=== PATIENT | male | born 1965 | race Caucasian/White ===

== ENCOUNTER → 2020-04-30 | Outpatient (CLI) | payer OTHER ==
[~2020-04-30] MED LIST: BACLOFEN10 MG PO; BAYER CHEWABLE81 MG PO; COQ-10100 MG PO; CYMBALTA60 MG PO; DOXAZOSIN MESYLA8 MG PO; HYDRALAZINE HCL25 MG PO; HYDROCODON-ACE1 EAC4 PO; NABUMETONE500 MG PO; PROTONIX40 MG PO; TIZANIDINE HCL4 M1 PO; TOPROL XL100 MG PO; VITAMIN D3100 MCG PO
== END ==
LOC: OPSV2 07:30
DX: Z01.812 Encounter for preprocedural laboratory examination (principal); Z20.822 Contact with and (suspected) exposure to COVID-19

== ENCOUNTER → 2020-05-07 | Day surgery (SDC) | payer OTHER | END | disposition home or self-care (01) | LOC: OR 06:13 | PROVIDERS: Surgery | PROC: 0KBR0ZX Excision of Left Upper Leg Muscle, Open Approach, Diagnostic (ICD-10-PCS; principal; 2020-05-07 07:30) | DX: M62.81 Muscle weakness (generalized) (principal); I10 Essential (primary) hypertension; E78.5 Hyperlipidemia, unspecified; J44.9 Chronic obstructive pulmonary disease, unspecified; G47.30 Sleep apnea, unspecified; K21.9 Gastro-esophageal reflux disease without esophagitis; M06.9 Rheumatoid arthritis, unspecified; Z20.822 Contact with and (suspected) exposure to COVID-19; Z79.82 Long term (current) use of aspirin; Z79.899 Other long term (current) drug therapy; Z87.891 Personal history of nicotine dependence; Z79.1 Long term (current) use of non-steroidal anti-inflammatories (NSAID) | CPT/HCPCS: J0690; J1100; J2001; J2250; J2405; J2704; J3010; J7120 ==

== ENCOUNTER → 2021-06-10 | Outpatient (CLI) | payer OTHER | LOC: HEART 5 08:00 | DX: R06.02 Shortness of breath (principal) | CPT/HCPCS: 93306 ==

== ENCOUNTER → 2021-06-30 | Outpatient (CLI) | payer OTHER | LOC: HEART 5 08:38 | DX: R07.9 Chest pain, unspecified (principal); R06.00 Dyspnea, unspecified | CPT/HCPCS: 78452; A9502 ==